=== PATIENT | female | born 1945 | race Two or more races ===

== ENCOUNTER 2019-11-22 07:43 | Outpatient (CLI) | payer OTHER ==
[2019-11-22] MEDS ORDERED: ATORVASTATIN CA10 MG PO (14:56)
[2019-11-22] MEDS ORDERED: LIPOFEN150 MG PO (14:56)
[2019-11-22] MEDS ORDERED: FORTAMET500 MG PO (14:56)
[2019-11-22] MEDS ORDERED: VALSARTAN-HCTZ1 EAC1 PO (14:57)
[2019-11-22] MEDS ORDERED: LUMIGAN2.5 M1 OP (14:57)
[2019-11-22] MEDS ORDERED: ALPHAGAN P5 M2 OP (14:58)
[2019-11-22] MEDS ORDERED: MACULAR SHIELD (14:59)
[2019-11-22] MEDS ORDERED: MULTIPLE VITAM1 EACH PO (14:59)
== END 2019-11-22 17:30 | disposition home or self-care (01) ==
LOC: EKG 07:43
DX: C50.412 Malignant neoplasm of upper-outer quadrant of left female breast (principal); I10 Essential (primary) hypertension

== ENCOUNTER 2019-11-29 07:00 | Day surgery (SDC) | payer OTHER ==
[~2019-11-29] VITALS: Ht 157.5 cm; Wt 68.0 kg
[~2019-11-29 07:00] MED LIST: ALPHAGAN P5 M2 OP; ATORVASTATIN CA10 MG PO; FORTAMET500 MG PO; LIPOFEN150 MG PO; LUMIGAN2.5 M1 OP; MACULAR SHIELD; MULTIPLE VITAM1 EACH PO; VALSARTAN-HCTZ1 EAC1 PO
== END 2019-11-30 08:00 | disposition home or self-care (01) ==
LOC: CIR.AMB 07:00 → SURG 08:30 → EDSTATUS 11:45 → SURG 11:45 → SURH 13:09 → O/R 13:09 → CIR.AMB 11-30 08:00 → O/R 11-30 10:48 → SURH 11-30 10:48
DX: C50.412 Malignant neoplasm of upper-outer quadrant of left female breast (principal)

== ENCOUNTER 2022-01-24 20:08 | Emergency (ER) | payer OTHER ==
[~2022-01-24] VITALS: Ht 157.5 cm; Wt 66.7 kg
== END 2022-01-24 22:52 | disposition home or self-care (01) ==
LOC: ER 20:08
DX: I10 Essential (primary) hypertension (principal); Z88.2 Allergy status to sulfonamides; E11.9 Type 2 diabetes mellitus without complications

== ENCOUNTER 2022-05-01 07:56 | Outpatient (CLI) | payer OTHER | END 2022-05-01 07:58 | disposition home or self-care (01) | LOC: NUCLEAR 07:56 | PROVIDERS: ATTEND Internal Medicine Hematology & Oncology | DX: C50.412 Malignant neoplasm of upper-outer quadrant of left female breast (principal); Z88.2 Allergy status to sulfonamides | CPT/HCPCS: 78812; A9552 ==

== ENCOUNTER 2023-12-22 07:09 | Outpatient (CLI) | payer OTHER | END 2023-12-22 07:10 | disposition home or self-care (01) | LOC: NUCLEAR 07:09 | PROVIDERS: ATTEND Internal Medicine | DX: I20.9 Angina pectoris, unspecified (principal); I11.9 Hypertensive heart disease without heart failure | CPT/HCPCS: 78452; 93017; A9500; J0153 ==

== ENCOUNTER → 2024-05-31 08:44 | Outpatient (CLI) | payer OTHER | END | disposition home or self-care (01) | LOC: NUCLEAR 08:44 | PROVIDERS: ATTEND Internal Medicine | DX: I50.9 Heart failure, unspecified (principal) ==